=== PATIENT | male | born 1960 | race Caucasian/White ===

== ENCOUNTER 2017-12-27 09:56 | Emergency (ER) | payer BC ==
[2017-12-27] MEDS ORDERED: 0.9 % SODIUM CHLORIDE 1,000 ML BAG IV ONE (10:05)
[2017-12-27] MEDS ORDERED: DEXAMETHASONE 4 MG/ML 1ML VIAL IVP ONE (10:05)
[2017-12-27] MEDS ORDERED: AMPICILLIN SODIUM/SULBACTAM NA 3 G in 0.9 % SODIUM CHLORIDE 100ML 100 ML IVPB ONE (10:06)
--- NOTE | 2017-12-27 10:12 | Emergency Department Record ---
History of Present Illness - General Chief complaint: Dental Stated complaint: INFECTION IN MOUTH Time Seen by Provider: 12/27/17 10:04 Source: Patient Mode of Arrival: Ambulatory Limitations: No limitations - History of Present Illness Initial comments: 57 yo male presents with gum pain and feeling dehydrated. He had 17 teeth pulled on the 23 of December. He has had pain since then. It hurts to put his dentures back in so he leaves them out. NO fever. He is drinking fluids. No voice changes. No fever. It does hurt to swallow. No vomiting. He does not like eating soft foods like yogurt or ice cream. No pus of drainage. No bleeding. MD complaint: Tooth pain -: Days(s) (4) Location: Tooth # (he had 17 teeth pulled) Severity: Moderate Quality: Aching Consistency: Constant Improves with: None Worsens with: Eating Context- Dental: Poor dental care, Other - Related Data Home Medications Medication Instructions Recorded Confirmed Last Taken Diazepam 5 mg PO DAILY 12/27/17 12/27/17 Unknown Hydrocodone/Acetaminophen 7.5 mg PO Q6H 12/27/17 12/27/17 Unknown [Hydrocodone/Acetaminophen 7.5mg/325mg] Penicillin V Potassium 500 mg PO DAILY 12/27/17 12/27/17 Unknown Allergies Allergy/AdvReac Type Severity Reaction Status Date / Time bupropion HCl [From Zyban] Allergy HYPERSENSIT Unverified 02/27/17 10:31 IVITY ketorolac tromethamine Allergy ALTERED Unverified 02/27/17 10:31 [From Toradol] MENTAL STATUS nitroglycerin Allergy Unverified 02/27/17 10:32 [From Nitrostat] acetaminophen AdvReac VOMITING Unverified 02/27/17 10:31 [From Tylenol-Codeine #3] codeine phosphate AdvReac VOMITING Unverified 02/27/17 10:31 [From Tylenol-Codeine #3] Review of Systems Constitutional: Denies: Chills, Fever, Malaise, Weakness Eyes: Denies: Eye discharge ENT: Reports: As per HPI, Dental pain, Throat pain. Denies: Congestion, Ear pain Respiratory: Denies: Cough, Dyspnea, Hemoptysis, Stridor, Wheezes Cardiovascular: Denies: Chest pain, Palpitations, Syncope Endocrine: Denies: Fatigue Gastrointestinal: Denies: Abdominal pain, Diarrhea, Nausea, Vomiting Genitourinary: Denies: Dysuria, Frequency, Hematuria Musculoskeletal: Denies: Arthralgia, Back pain, Myalgia Skin: Denies: Bruising, Change in color, Rash Neurological: Denies: Headache Psychiatric: Denies: Anxiety Hematological/Lymphatic: Denies: Easy bleeding, Easy bruising Past Medical History - SOCIAL HISTORY Smoking Status: Current every day smoker Drug Use: None - RESPIRATORY Hx Respiratory Disorders: No - CARDIOVASCULAR Hx Cardio Disorders: No - NEURO Hx Neuro Disorders: No - GI Hx GI Disorders: No - Hx Genitourinary Disorders: No - ENDOCRINE Hx Endocrine Disorders: No - MUSCULOSKELETAL Hx Musculoskeletal Disorders: Yes Hx Back Injury: Yes - PSYCH Hx Psych Problems: No - HEMATOLOGY/ONCOLOGY Hx Hematology/Oncology Disorders: No Physical Exam - General General Appearance: Alert, Oriented x3, Cooperative, No acute distress, Other ( Well appearing clear voice no distress) Limitations: No limitations - Head Head exam: Atraumatic Head exam detail: Other (No facial swelling, normal external appearance) - Eye Eye exam: Normal appearance. negative: Conjunctival injection - ENT ENT exam: Normal exam, Mucous membranes moist. negative: Mucous membranes dry Ear exam: Normal external inspection Nasal Exam: Normal inspection Mouth exam: Normal external inspection Teeth exam: Gingival enlargement (Mild upper gum edeam (minimal), no erythema, no pus, no mass. NORMAL posterior pharynx, no swelling, no mass. Widely patent) Throat exam: Normal inspection. negative: Tonsillar erythema, Tonsillomegaly, Tonsillar exudate, R peritonsillar mass, L peritonsillar mass - Neck Neck exam: Normal inspection, Full ROM, Other (Normal neck inspection, no swelling, no tenderness). negative: Lymphadenopathy - Respiratory Respiratory exam: Normal lung sounds bilaterally. negative: Respiratory distress - Cardiovascular Cardiovascular Exam: Regular rate, Normal rhythm, Normal heart sounds - GI/Abdominal GI/Abdominal exam: Soft. negative: Tenderness - Rectal Rectal exam: Deferred - exam: Deferred - Extremities Extremities exam: Normal inspection - Neurological Neurological exam: Alert, Oriented X3 - Psychiatric Psychiatric exam: Normal affect, Normal mood - Skin Skin exam: Dry, Intact, Normal color, Warm Course - Reevaluation(s) Reevaluation #1: The examination demonstrates a widely patent oral cavity, mild gum swelling, no overt infection, supple neck, no facial or neck swelling, clear voice, well appearing at this time. 12/27/17 10:26 No acute changes on the CBC. 12/27/17 10:51 No acute changes on the labs Medical Decision Making - Lab Data Result diagrams: 12/27/17 10:13 12/27/17 10:13 Disposition Disposition: Discharge Clinical Impression: Pain, dental Disposition: Home, Self-Care Condition: (1) Good Instructions: Dental Abscess (ED) Additional Instructions: Call your dentist Friday for close follow up Be seen over the weekend if worse, fever, vomiting or new concerns Continue your soft diet, antibiotics and dental care as your were instructed after your teeth were removed. Forms: Patient Portal Access Time of Disposition: 10:52 Quality - Quality Measures Quality Measures: N/A - Blood Pressure Screening Does Patient Have Any of the Following: No Blood Pressure Classification: Hypertensive Reading Systolic Measurement: 130 Diastolic Measurement: 100 Screening for High Blood Pressure: < Pre-Hypertensive BP, F/U Documented > [ [id number]] Pre-Hypertensive Follow-up Interventions: Referral to alternative/primary care provider.
[2017-12-27 10:19] LABS: BASO % 0.4 % (0-6); EOS % 2.2 % (0-6); HEMATOCRIT 46.9 % (42.0-52.0); HEMOGLOBIN 15.7 gm/dl (14.0-18.0); LYMPH % 25.7 % (16-45); MEAN CELL VOLUME 93.2 fl (81-97); MEAN CORPUSCULAR HEMOGLOBIN 31.2 pg (27-33); MEAN CORPUSCULAR HGB CONC 33.5 g/dl (32-36); MEAN PLATELET VOLUME 9.3 fl (7.4-10.4); MONO % 11.7 % (0-9); PLATELET COUNT 249 K/uL (130-400); RED BLOOD COUNT 5.03 M/uL (4.40-5.70); RED CELL DISTRIBUTION WIDTH 13.5 % (11.5-14.5); WHITE BLOOD COUNT W/O DIFF 7.4 K/uL (4.2-12.2)
[2017-12-27 10:41] LABS: BLOOD UREA NITROGEN 15 mg/dL (6-20); EST GLOMERULAR FILTRATION RATE > 60 mL/min; GLUCOSE,RANDOM 110 mg/dL (74-109)
== END 2017-12-27 11:16 | disposition home or self-care (01) ==
LOC: ER 09:56
DX: K08.89 Other specified disorders of teeth and supporting structures (principal); F17.210 Nicotine dependence, cigarettes, uncomplicated
CPT/HCPCS: 99284 ×2; 96365; 96375; 85025; 80048; J0295; J7030